=== PATIENT | male | born 1965 | race Caucasian/White ===

== ENCOUNTER → 2023-08-10 | Day surgery (SDC) | payer BC ==
[2023-08-09 08:56] VITALS: BMI 31.1
[~2023-08-10] MED LIST: LACTATED RINGERS 1,000 ML IV SCH; PROPOFOL 10 MG/ML 20 ML VIAL IV ONE
[2023-08-10] MEDS: IV FLUID CONTINUATION 1,000 ML IV ONE ×2 (13:44→14:57)
[2023-08-10 13:57] VITALS: RESP 16; TEMP 97.8
--- NOTE | 2023-08-10 15:17 | P.PCN ---
Date of Procedure: 08/10/23 Procedure(s) Performed: BRIEF HISTORY: Patient is a 58-year-old pleasant white male scheduled for an elective colonoscopy as a part of evaluation by history of colon polyps and family history of colon cancer. His dad was diagnosed with colon cancer at age 65. PROCEDURE PERFORMED: Colonoscopy with biopsy biopsy. PREOPERATIVE DIAGNOSIS: History of colon polyps and family history of colon cancer. IV sedation per Anesthesia. PROCEDURE: After informed consent was obtained, the patient, was brought into the endoscopy unit. IV sedation was administered by Anesthesia under continuous monitoring. Digital rectal examination was normal. Initially the Olympus CF-160 flexible video colonoscope was then inserted in the rectum, gradually advanced into the cecum without any difficulty. Careful examination was performed as the scope was gradually being withdrawn. Ileocecal valve and the appendiceal orifice were visualized and appeared normal. Prep was excellent. Mucosa of the cecum, ascending colon, transverse colon, descending colon, sigmoid colon, and rectum appeared normal. In addition; there were 2 polyps measuring 3 mm and 5 mm in size both of which were removed by cold biopsy. Scattered sigmoid diverticulosis. Retroflexion was performed in the rectum and no lesions were seen. The patient tolerated the procedure well. IMPRESSION: Scattered sigmoid diverticulosis. 3 mm and 5 mm sigmoid colon polyp status post removal by cold biopsy Rest of the colon appeared normal RECOMMENDATIONS: Findings of this examination were discussed with the patient as well as her family. He was advised to follow-up with the biopsy results. Recommended repeat colonoscopy in 5 years because of the family history of colon cancer
[2023-08-10 15:30] VITALS: BP 120/80; PULSE 74
== END ==
LOC: ORWHC2ENDO 13:14
PROVIDERS: ATTEND Internal Medicine Gastroenterology
DX: Z12.11 Encounter for screening for malignant neoplasm of colon (principal); K63.5 Polyp of colon; K57.30 Diverticulosis of large intestine without perforation or abscess without bleeding; I10 Essential (primary) hypertension; E78.5 Hyperlipidemia, unspecified; G47.33 Obstructive sleep apnea (adult) (pediatric); Z79.82 Long term (current) use of aspirin; Z79.899 Other long term (current) drug therapy; Z80.0 Family history of malignant neoplasm of digestive organs; Z86.010 Personal history of colon polyps
CPT/HCPCS: 88305; 45380; J2704